=== PATIENT | female | born 1985 | race Caucasian/White ===

== ENCOUNTER 2019-02-18 03:29 | Inpatient (IN) | payer MEDICAID ==
[2019-02-18] MEDS ORDERED: Ondansetron 4 MG/2 ML SDV IVPUSH PRN ×2 (07:57→09:20)
[2019-02-18] MEDS ORDERED: Nalbuphine 20 MG/ML 1 ML Syringe IVPUSH PRN (07:57)
[2019-02-18] MEDS ORDERED: Sodium Chloride 0.9% 10 ML Syringe FLUSH PRN (07:57)
[2019-02-18] MEDS ORDERED: Oxytocin/Lactated Ringers 10 UNIT/1,000 ML BAG IV SCH (08:00)
[2019-02-18] MEDS: Oxytocin/Lactated Ringers 10 UNIT/1,000 ML BAG IV SCH ×2 (08:30→18:50)
[2019-02-18] MEDS: Lactated Ringers 1,000 ML IV SCH ×3 (08:58→19:48)
[2019-02-18] MEDS ORDERED: fentaNYL 100 MCG/2 ML SDV EPIDUR PRN (09:20)
[2019-02-18] MEDS ORDERED: ePHEDrine 50 MG/ML SDV IVPUSH PRN (09:20)
[2019-02-18] MEDS ORDERED: fentaNYL/Bupivacaine-NS 2 MCG/ML-0.125%/PF 100 ML Bag EPIDUR PRN (09:20)
[2019-02-18] MEDS ORDERED: diphenhydrAMINE 50 MG/ML SDV IVPUSH PRN (09:20)
--- NOTE | 2019-02-18 19:31 | PCM.PREANE ---
Preanesthetic Assessment - Anesthesia/Transfusion/Family Hx Anesthesia History: Prior Anesthesia Without Reaction Family History of Anesthesia Reaction: No Transfusion History: No Prior Transfusion(s) - Review of Systems General: Fatigue Pulmonary: No Symptoms Cardiovascular: Dyspnea on Exertion Gastrointestinal: Abdominal Pain (labor pain) Neurological: No Symptoms Other: Reports: None - Physical Assessment Pulse: 99 O2 Sat by Pulse Oximetry: 98 Respiratory Rate: 16 Blood Pressure: 132/81 Temperature: 36.7 C Vital Signs: Last Vital Signs Temp 36.7 C 02/18/19 08:00 Pulse 99 02/18/19 08:00 Resp 16 02/18/19 08:00 BP 132/81 02/18/19 08:00 Pulse Ox Height: 1.65 m Weight: 89.993 kg ASA Class: 2 Mental Status: Alert & Oriented x3 Airway Class: Mallampati = 1 Dentition: Reports: Normal Dentition Thyro-Mental Finger Breadths: 3 Mouth Opening Finger Breadths: 3 ROM/Head Extension: Full Lungs: Clear to Auscultation, Normal Respiratory Effort Cardiovascular: Regular Rate, Regular Rhythm - Lab Values: Laboratory Last Values WBC 9.78 K/mm3 (3.98-10.04) 02/18/19 08:11 RBC 3.98 M/mm3 (3.98-5.22) 02/18/19 08:11 Hgb 10.9 gm/L (11.2-15.7) L 02/18/19 08:11 Hct 32.9 % (34.1-44.9) L 02/18/19 08:11 MCV 82.7 fl (79.4-94.8) 02/18/19 08:11 MCH 27.4 pg (25.6-32.2) 02/18/19 08:11 MCHC 33.1 g/dl (32.2-35.5) 02/18/19 08:11 RDW Std Deviation 42.6 fL (36.4-46.3) 02/18/19 08:11 Plt Count 186 K/mm3 (182-369) 02/18/19 08:11 MPV 11.1 fl (9.4-12.3) 02/18/19 08:11 Neut % (Auto) 70.4 % (34.0-71.1) 02/18/19 08:11 Lymph % (Auto) 18.0 % (19.3-51.7) L 02/18/19 08:11 [place] % (Auto) 10.3 % (4.7-12.5) 02/18/19 08:11 Eos % (Auto) 0.5 (0.7-5.8) L 02/18/19 08:11 Baso % (Auto) 0.2 % (0.1-1.2) 02/18/19 08:11 Neut # (Auto) 6.88 K/mm3 (1.56-6.13) H 02/18/19 08:11 Lymph # (Auto) 1.76 K/mm3 (1.18-3.74) 02/18/19 08:11 [place] # (Auto) 1.01 K/mm3 (0.24-0.36) H 02/18/19 08:11 Eos # (Auto) 0.05 K/mm3 (0.04-0.36) 02/18/19 08:11 Baso # (Auto) 0.02 K/mm3 (0.01-0.08) 02/18/19 08:11 - Allergies Allergies/Adverse Reactions: Allergies Allergy/AdvReac Type Severity Reaction Status Date / Time Penicillins Allergy Hives Verified 02/18/19 07:13 - Anesthesia Plan Pre-Op Medication Ordered: None - Acknowledgements Anesthesia Type Planned: Epidural Pt an Appropriate Candidate for the Planned Anesthesia: Yes Alternatives and Risks of Anesthesia Discussed w Pt/Guardian: Yes Pt/Guardian Understands and Agrees with Anesthesia Plan: Yes PreAnesthesia Questionnaire - Past Health History Medical/Surgical History: Denies Medical/Surgical History Gastrointestinal History: Reports: GERD - Past Surgical History HEENT Surgical History: Reports: Oral Surgery Other HEENT Surgeries/Procedures: wisdom teeth over 10 years ago as reported by patient - SUBSTANCE USE Smoking Status *Q: Never Smoker Tobacco Use Within Last Twelve Months: No Second Hand Smoke Exposure: No Recreational Drug Use History: No - HOME MEDS Home Medications: Home Meds PNV95/Ferrous Fumarate/FA [ Tablet] 1 each PO 02/18/19 [History] Zolpidem Tartrate [Ambien] 5 mg PO 02/18/19 [History] - CURRENT (IN HOUSE) MEDS Current Meds: Current Medications Diphenhydramine HCl (Benadryl) 25 mg IVPUSH Q6H PRN PRN Reason: Pruritis Ephedrine Sulfate (Ephedrine Sulfate) 5 mg IVPUSH ASDIRECTED PRN PRN Reason: Hypotension Fentanyl (Sublimaze) 100 mcg EPIDUR ONETIME PRN PRN Reason: Pain Last Admin: 02/18/19 19:16 Dose: 100 mcg Fentanyl/Bupivacaine HCl (Daftbfzh-Xoema-Gv 2 Mcg/Ml-0.125%) 100 ml EPIDUR ASDIRECTED PRN PRN Reason: Pain (severe 7-10) Last Admin: 02/18/19 19:17 Dose: 100 ml Lactated Ringer's (Ringers, Lactated) 1,000 mls @ 100 mls/hr IV ASDIRECTED TIMMY Last Admin: 02/18/19 18:01 Dose: 100 mls/hr Oxytocin/Lactated Ringer's (Pitocin In Lr 10 Units/1,000 Ml) 10 unit in 1,000 mls @ 500 mls/hr IV .CONTINUOUS TIMMY Oxytocin/Lactated Ringer's (Pitocin In Lr 10 Units/1,000 Ml) 10 unit in 1,000 mls @ 12 mls/hr IV TITRATE TIMMY; Protocol Last Admin: 02/18/19 18:50 Dose: 23 munits/min, 138 mls/hr Nalbuphine HCl (Nubain) 10 mg IVPUSH Q2H PRN PRN Reason: pain Last Admin: 02/18/19 18:17 Dose: 10 mg Ondansetron HCl (Zofran) 4 mg IVPUSH Q4H PRN PRN Reason: Nausea/Vomiting Ondansetron HCl (Zofran) 4 mg IVPUSH ONETIME PRN PRN Reason: Nausea/Vomiting Sodium Chloride (Saline Flush) 10 ml FLUSH ASDIRECTED PRN PRN Reason: Keep Vein Open
[2019-02-18] MEDS ORDERED: Bupivacaine 0.25% 10 ML SDV ONE (22:00)
--- NOTE | 2019-02-19 04:00 | PCM.LDHP ---
L&D History of Present Illness - General Date of Service: 02/18/19 Admit Problem/Dx: Patient Status Order with Admit Dx/Problem 02/18/19 08:00 Patient Status [ADT] Routine Admission Diagnosis/Problem Admission Diagnosis/Problem - History of Present Illness Introduction:: 33 year old at 37w5d here for induction of labor secondary to cholestasis of . Pain Score: 10 - Related Data Allergies/Adverse Reactions: Allergies Allergy/AdvReac Type Severity Reaction Status Date / Time Penicillins Allergy Hives Verified 02/18/19 07:13 Home Medications: Home Meds PNV95/Ferrous Fumarate/FA [ Tablet] 1 each PO 02/18/19 [History] Zolpidem Tartrate [Ambien] 5 mg PO 02/18/19 [History] Past Medical History - Past Health History Medical/Surgical History: Denies Medical/Surgical History Gastrointestinal History: Reports: GERD - Past Surgical History HEENT Surgical History: Reports: Oral Surgery Other HEENT Surgeries/Procedures: wisdom teeth over 10 years ago as reported by patient Social & Family History - Family History Family Medical History: Noncontributory - Tobacco Use Smoking Status *Q: Never Smoker Second Hand Smoke Exposure: No - Caffeine Use Caffeine Use: Reports: None - Recreational Drug Use Recreational Drug Use: No H&P Review of Systems - Review of Systems: Review Of Systems: See Below General: Reports: No Symptoms HEENT: Reports: No Symptoms Pulmonary: Reports: No Symptoms Cardiovascular: Reports: No Symptoms Gastrointestinal: Reports: No Symptoms Genitourinary: Reports: No Symptoms Musculoskeletal: Reports: No Symptoms Skin: Reports: No Symptoms Psychiatric: Reports: No Symptoms Neurological: Reports: No Symptoms Hematologic/Lymphatic: Reports: No Symptoms Immunologic: Reports: No Symptoms L&D Exam - Exam Exam: See Below - Vital Signs Vital Signs: Last Vital Signs Temp 36.7 C 02/18/19 19:31 Pulse 99 02/18/19 19:31 Resp 16 02/18/19 19:31 BP 132/81 02/18/19 19:31 Pulse Ox 98 02/18/19 19:31 Weight: 89.993 kg - OB Specific Fundal Height In cm: 38 Contraction Intensity: Moderate Movement: Active Heart Tones per Min: 145 Presentation: Vertex Estimated Weight: 3000 - Shaw Score Shaw Score Cervix Position: Midposition Shaw Score Consistency: Soft Shaw Score Effacement: 51-70% Shaw Score Dilation: 3-4 cm Shaw Score Infant's Station: -2 Shaw Score Total: 8 - Exam General: Alert, Oriented HEENT: PERRLA, Conjunctiva Clear, EACs Clear, EOMI, Hearing Intact, Mucosa Moist & [place], Nares Patent, Normal Nasal Septum, Posterior Pharynx Clear, TMs Clear Neck: Supple, Trachea Midline Lungs: Clear to Auscultation, Normal Respiratory Effort Cardiovascular: Regular Rate, Regular Rhythm GI/Abdominal Exam: Normal Bowel Sounds, Soft, Non-Tender, No Organomegaly, No Distention, No Abnormal Bruit, No Mass, Pelvis Stable Rectal Exam: Normal Exam, Hemorrhoids Genitourinary: Normal external exam, Normal bimanual exam, Normal speculum exam Back Exam: Normal Inspection, Full Range of Motion Extremities: Normal Inspection, Normal Range of Motion, Non-Tender, No Pedal Edema, Normal Capillary Refill Skin: Warm, Dry, Intact Neurological: Cranial Nerves Intact, Reflexes Equal Bilateral Psychiatric: Alert, Normal Affect, Normal Mood - Patient Data Lab Results Last 24 hrs: Laboratory Results - last 24 hr 02/18/19 Range/Units 08:11 WBC 9.78 (3.98-10.04) K/mm3 RBC 3.98 (3.98-5.22) M/mm3 Hgb 10.9 L (11.2-15.7) gm/L Hct 32.9 L (34.1-44.9) % MCV 82.7 (79.4-94.8) fl MCH 27.4 (25.6-32.2) pg MCHC 33.1 (32.2-35.5) g/dl RDW Std Deviation 42.6 (36.4-46.3) fL Plt Count 186 (182-369) K/mm3 MPV 11.1 (9.4-12.3) fl Neut % (Auto) 70.4 (34.0-71.1) % Lymph % (Auto) 18.0 L (19.3-51.7) % [place] % (Auto) 10.3 (4.7-12.5) % Eos % (Auto) 0.5 L (0.7-5.8) Baso % (Auto) 0.2 (0.1-1.2) % Neut # (Auto) 6.88 H (1.56-6.13) K/mm3 Lymph # (Auto) 1.76 (1.18-3.74) K/mm3 [place] # (Auto) 1.01 H (0.24-0.36) K/mm3 Eos # (Auto) 0.05 (0.04-0.36) K/mm3 Baso # (Auto) 0.02 (0.01-0.08) K/mm3 Result Diagrams: 02/18/19 08:11 Problem List Initiated/Reviewed/Updated: Yes Orders Last 24hrs: Active Orders 24 hr Category Date Time Status Patient Status [ADT] Routine ADT 02/18/19 08:00 Active Activity as Tolerated [RC] PFP Care 02/18/19 08:00 Active Communication Order [RC] ASDIRECTED Care 02/18/19 08:00 Active Notify Provider [RC] ASDIRECTED Care 02/18/19 09:20 Active Notify Provider [RC] PFP Care 02/18/19 08:00 Active Notify Provider [RC] PRN Care 02/18/19 08:00 Active Peripheral IV Care [RC] . DIRECTED Care 02/18/19 08:00 Active Vital Signs [RC] PER UNIT ROUTINE Care 02/18/19 08:00 Active Regular Diet [DIET] Diet 02/18/19 Breakfast Active RAPID PLASMA REAGIN,RPR [CHEM] Routine Lab 02/18/19 08:11 Received Lactated Ringers [Ringers, Lactated] 1,000 ml Med 02/18/19 08:00 Active IV ASDIRECTED Nalbuphine [Nubain] Med 02/18/19 07:57 Active 10 mg IVPUSH Q2H PRN Ondansetron [Zofran] Med 02/18/19 09:20 Active 4 mg IVPUSH ONETIME PRN Ondansetron [Zofran] Med 02/18/19 07:57 Active 4 mg IVPUSH Q4H PRN Oxytocin [Pitocin] 20 unit Med 02/19/19 01:00 Active Lactated Ringers [Ringers, Lactated] 1,000 ml IV TITRATE Oxytocin/Lactated Ringers [Pitocin in LR 10 Units/1,000 Med 02/18/19 08:00 Active ML] 10 unit in 1,000 ml IV .CONTINUOUS Oxytocin/Lactated Ringers [Pitocin in LR 10 Units/1,000 Med 02/18/19 08:15 Active ML] 10 unit in 1,000 ml IV TITRATE Sodium Chloride 0.9% [Saline Flush] Med 02/18/19 07:57 Active 10 ml FLUSH ASDIRECTED PRN diphenhydrAMINE [Benadryl] Med 02/18/19 09:20 Active 25 mg IVPUSH Q6H PRN ePHEDrine [ePHEDrine sulfate] Med 02/18/19 09:20 Active 5 mg IVPUSH ASDIRECTED PRN fentaNYL [Sublimaze] Med 02/18/19 09:20 Active 100 mcg EPIDUR ONETIME PRN fentaNYL/Bupivacaine/NS/PF [kquavDNJ-Hirfi-GG 2 MCG/ML- Med 02/18/19 09:20 Active 0.125%] 100 ml EPIDUR ASDIRECTED PRN Electronic Heart Tones Ext w TOCO [WOMSER] Oth 02/18/19 08:00 Ordered Routine Electronic Heart Tones Internal [WOMSER] Per Unit Oth 02/18/19 08:00 Ordered Routine Peripheral IV Insertion Adult [OM.PC] Routine Oth 02/18/19 08:00 Ordered Resuscitation Status Routine Resus Stat 02/18/19 07:57 Ordered Medication Orders Diphenhydramine HCl (Benadryl) 25 mg IVPUSH Q6H PRN PRN Reason: Pruritis Ephedrine Sulfate (Ephedrine Sulfate) 5 mg IVPUSH ASDIRECTED PRN PRN Reason: Hypotension Fentanyl (Sublimaze) 100 mcg EPIDUR ONETIME PRN PRN Reason: Pain Last Admin: 02/18/19 19:16 Dose: 100 mcg Fentanyl/Bupivacaine HCl (Fycoljen-Vbrlh-Wh 2 Mcg/Ml-0.125%) 100 ml EPIDUR ASDIRECTED PRN PRN Reason: Pain (severe 7-10) Last Admin: 02/18/19 19:17 Dose: 100 ml Lactated Ringer's (Ringers, Lactated) 1,000 mls @ 100 mls/hr IV ASDIRECTED TIMMY Last Admin: 02/18/19 19:48 Dose: 100 mls/hr Infusion: 02/18/19 19:48 Dose: 100 mls/hr Admin: 02/18/19 18:01 Dose: 100 mls/hr Infusion: 02/18/19 18:01 Dose: 100 mls/hr Admin: 02/18/19 08:58 Dose: 100 mls/hr Oxytocin/Lactated Ringer's (Pitocin In Lr 10 Units/1,000 Ml) 10 unit in 1,000 mls @ 500 mls/hr IV .CONTINUOUS TIMMY Oxytocin/Lactated Ringer's (Pitocin In Lr 10 Units/1,000 Ml) 10 unit in 1,000 mls @ 12 mls/hr IV TITRATE TIMMY; Protocol Last Titration: 02/18/19 22:45 Dose: 30 munits/min, 180 mls/hr Titration: 02/18/19 21:42 Dose: 29 munits/min, 174 mls/hr Titration: 02/18/19 21:15 Dose: 27 munits/min, 162 mls/hr Titration: 02/18/19 20:42 Dose: 25 munits/min, 150 mls/hr Admin: 02/18/19 18:50 Dose: 23 munits/min, 138 mls/hr Titration: 02/18/19 18:50 Dose: 23 munits/min, 138 mls/hr Titration: 02/18/19 18:25 Dose: 23 munits/min, 138 mls/hr Titration: 02/18/19 16:40 Dose: 25 munits/min, 150 mls/hr Titration: 02/18/19 16:03 Dose: 24 munits/min, 144 mls/hr Titration: 02/18/19 15:10 Dose: 22 munits/min, 132 mls/hr Titration: 02/18/19 14:40 Dose: 20 munits/min, 120 mls/hr Titration: 02/18/19 14:00 Dose: 18 munits/min, 108 mls/hr Titration: 02/18/19 13:05 Dose: 16 munits/min, 96 mls/hr Titration: 02/18/19 12:25 Dose: 14 munits/min, 84 mls/hr Titration: 02/18/19 11:30 Dose: 12 munits/min, 72 mls/hr Titration: 02/18/19 11:01 Dose: 10 munits/min, 60 mls/hr Titration: 02/18/19 10:30 Dose: 8 munits/min, 48 mls/hr Titration: 02/18/19 10:00 Dose: 6 munits/min, 36 mls/hr Titration: 02/18/19 09:30 Dose: 4 munits/min, 24 mls/hr Admin: 02/18/19 08:30 Dose: 2 munits/min, 12 mls/hr Oxytocin 20 unit/ Lactated (Ringer's) 1,002 mls @ 90.18 mls/hr IV TITRATE TIMMY; Protocol Last Admin: 02/19/19 01:05 Dose: 30 munits/min, 90.18 mls/hr Nalbuphine HCl (Nubain) 10 mg IVPUSH Q2H PRN PRN Reason: pain Last Admin: 02/18/19 18:17 Dose: 10 mg Ondansetron HCl (Zofran) 4 mg IVPUSH Q4H PRN PRN Reason: Nausea/Vomiting Ondansetron HCl (Zofran) 4 mg IVPUSH ONETIME PRN PRN Reason: Nausea/Vomiting Sodium Chloride (Saline Flush) 10 ml FLUSH ASDIRECTED PRN PRN Reason: Keep Vein Open Assessment/Plan Comment:: Induction secondary to cholestasis. Pitocin, AROM when possible. Anticipate
--- NOTE | 2019-02-19 04:01 | PCM.PNLD ---
Labor Progress Note - VS & Meds Vital Signs: Last Vital Signs Temp 36.7 C 02/18/19 19:31 Pulse 99 02/18/19 19:31 Resp 16 02/18/19 19:31 BP 132/81 02/18/19 19:31 Pulse Ox 98 02/18/19 19:31 Active Medications: Current Medications Diphenhydramine HCl (Benadryl) 25 mg IVPUSH Q6H PRN PRN Reason: Pruritis Ephedrine Sulfate (Ephedrine Sulfate) 5 mg IVPUSH ASDIRECTED PRN PRN Reason: Hypotension Fentanyl (Sublimaze) 100 mcg EPIDUR ONETIME PRN PRN Reason: Pain Last Admin: 02/18/19 19:16 Dose: 100 mcg Fentanyl/Bupivacaine HCl (Mtqzwlwj-Mqyrh-Vn 2 Mcg/Ml-0.125%) 100 ml EPIDUR ASDIRECTED PRN PRN Reason: Pain (severe 7-10) Last Admin: 02/18/19 19:17 Dose: 100 ml Lactated Ringer's (Ringers, Lactated) 1,000 mls @ 100 mls/hr IV ASDIRECTED TIMMY Last Admin: 02/18/19 19:48 Dose: 100 mls/hr Oxytocin/Lactated Ringer's (Pitocin In Lr 10 Units/1,000 Ml) 10 unit in 1,000 mls @ 500 mls/hr IV .CONTINUOUS TIMMY Oxytocin/Lactated Ringer's (Pitocin In Lr 10 Units/1,000 Ml) 10 unit in 1,000 mls @ 12 mls/hr IV TITRATE TIMMY; Protocol Last Titration: 02/18/19 22:45 Dose: 30 munits/min, 180 mls/hr Oxytocin 20 unit/ Lactated (Ringer's) 1,002 mls @ 90.18 mls/hr IV TITRATE TIMMY; Protocol Last Admin: 02/19/19 01:05 Dose: 30 munits/min, 90.18 mls/hr Nalbuphine HCl (Nubain) 10 mg IVPUSH Q2H PRN PRN Reason: pain Last Admin: 02/18/19 18:17 Dose: 10 mg Ondansetron HCl (Zofran) 4 mg IVPUSH Q4H PRN PRN Reason: Nausea/Vomiting Ondansetron HCl (Zofran) 4 mg IVPUSH ONETIME PRN PRN Reason: Nausea/Vomiting Sodium Chloride (Saline Flush) 10 ml FLUSH ASDIRECTED PRN PRN Reason: Keep Vein Open - Uterine Contractions Contraction Intensity: Moderate - Monitoring Heart Rate (FHR) Baseline: 145 Heart Rate (FHR) Variability: Moderate (6-25 bmp) Accelerations: Present, 15x15 Decelerations: None Strip Review: Category I - Vaginal Exam Dilation (cm): 3 Effacement (Percent): 80 Cervical Position: Midposition - Labor Progress (Free Text) Labor Progress: Doing well AROM clear fluid
[2019-02-19] MEDS ORDERED: Acetaminophen 325 MG Tab PO PRN (04:49)
[2019-02-19] MEDS ORDERED: Benzocaine/Menthol 20%-0.5% Spray 56 GM Canister TOP PRN (04:50)
[2019-02-19] MEDS ORDERED: Witch Hazel Medicated Pads 40/Jar TOP PRN (04:50)
[2019-02-19] MEDS: Ibuprofen 600 MG Tab PO PRN ×3 (05:27→21:23)
--- NOTE | 2019-02-19 09:56 | PCM48HPAN ---
Post Anesthesia Note - EVALUATION WITHIN 48HRS OF ANESTHETIC Vital Signs in Normal Range: Yes Patient Participated in Evaluation: Yes Respiratory Function Stable: Yes Airway Patent: Yes Cardiovascular Function Stable: Yes Hydration Status Stable: Yes Pain Control Satisfactory: Yes Nausea and Vomiting Control Satisfactory: Yes Mental Status Recovered: Yes
[2019-02-19] MEDS ORDERED: Misoprostol 200 MCG Tab PO ONE (15:54)
--- NOTE | 2019-02-19 16:48 | PCM.SN ---
- Free Text/Narrative Note: Stage I - Patient presented for induction for cholestasis. Progressed to complete with reassuring heart tones. Epidural for anesthesia Stage II - of viable male, 6#7 oz, 8/8 APGARS at 0329. Head delivered in controlled manner over intact perineum. Body and shoulders followed without difficulty. Positive cry. To maternal abdomen. Cord clamped and cut. Stage III - of intact placenta. 3vc. EBL 150. 2nd degree repaired with 3-0 vicryl.
[2019-02-19] MEDS ORDERED: Acetaminophen/oxyCODONE 325-5 MG Tab PO ONE (21:52)
[2019-02-19] MEDS ORDERED: Methylergonovine 0.2 MG/1 ML Amp IM PRN (22:40)
[2019-02-20] MEDS: Acetaminophen/oxyCODONE 325-5 MG Tab PO PRN ×2 (01:58→08:46)
[2019-02-20] MEDS: Ibuprofen 600 MG Tab PO PRN (05:10)
--- NOTE | 2019-02-20 08:33 | PCM.DCSUM1 ---
Discharge Summary - Hospital Course Free Text/Narrative:: Stage I - Patient presented for induction for cholestasis. Progressed to complete with reassuring heart tones. Epidural for anesthesia Stage II - of viable male, 6#7 oz, 8/8 APGARS at 0329. Head delivered in controlled manner over intact perineum. Body and shoulders followed without difficulty. Positive cry. To maternal abdomen. Cord clamped and cut. Stage III - of intact placenta. 3vc. EBL 150. 2nd degree repaired with 3-0 vicryl. HPI Initial Comments: Stage I - Patient presented for induction for cholestasis. Progressed to complete with reassuring heart tones. Epidural for anesthesia Stage II - of viable male, 6#7 oz, 8/8 APGARS at 0329. Head delivered in controlled manner over intact perineum. Body and shoulders followed without difficulty. Positive cry. To maternal abdomen. Cord clamped and cut. Stage III - of intact placenta. 3vc. EBL 150. 2nd degree repaired with 3-0 vicryl. Brief History: Stage I - Patient presented for induction for cholestasis. Progressed to complete with reassuring heart tones. Epidural for anesthesia. Stage II - of viable male, 6#7 oz, 8/8 APGARS at 0329. Head delivered in controlled manner over intact perineum. Body and shoulders followed without difficulty. Positive cry. To maternal abdomen. Cord clamped and cut. Stage III - of intact placenta. 3vc. EBL 150. 2nd degree repaired with 3-0 vicryl. Diagnosis: Stroke: No - Discharge Data Discharge Date: 02/20/19 Discharge Disposition: Home, Self-Care 01 Condition: Good - Discharge Diagnosis/Problem(s) (1) Second degree laceration of perineum, delivered, current hospitalization SNOMED Code(s): 041186419, 976374464 ICD Code: O70.1 - SECOND DEGREE PERINEAL LACERATION DURING DELIVERY Status : Acute Current Visit: Yes (2) Cholelithiasis complicating in third trimester, antepartum SNOMED Code(s): 577628665, 460916325, 323752799 ICD Code: O26.613 - LIVER AND BILIARY TRACT DISORD IN , THIRD TRIMESTER; K80.20 - CALCULUS OF GALLBLADDER W/O CHOLECYSTITIS W/O OBSTRUCTION Status: Acute Current Visit: Yes (3) Liver and biliary tract disorders in , third trimester SNOMED Code(s): 37075554 ICD Code: O26.613 - LIVER AND BILIARY TRACT DISORD IN , THIRD TRIMESTER Status: Acute Current Visit: Yes (4) 37 weeks gestation of SNOMED Code(s): 82684724 ICD Code: Z3A.37 - 37 WEEKS GESTATION OF Status: Acute Current Visit: Yes - Patient Summary/Data Complications: None Consults: None Hospital Course: Uneventful - Patient Instructions Diet: Usual Diet as Tolerated Driving: Do Not Drive (48 hours) Showering/Bathing: May Shower Notify Provider of: Fever, Increased Pain, Swelling and Redness, Drainage, Nausea and/or Vomiting - Discharge Plan *PRESCRIPTION DRUG MONITORING PROGRAM REVIEWED*: Not Applicable *COPY OF PRESCRIPTION DRUG MONITORING REPORT IN PATIENT MEGHA: Not Applicable Home Medications: Home Meds PNV95/Ferrous Fumarate/FA [ Tablet] 1 each PO 02/18/19 [History] Acetaminophen [Tylenol] 650 mg PO Q6H PRN tablet 02/20/19 [Rx] Benzocaine/Menthol [Dermoplast Pain Relief [place]] 0 gm TOP ASDIRECTED PRN canister 02/20/19 [Rx] Ibuprofen [Motrin] 600 mg PO Q6H PRN tablet 02/20/19 [Rx] Witch Aury [Tucks] 1 pad TOP ASDIRECTED PRN pad 02/20/19 [Rx] Referrals: Tessie Nelson MD [Primary Care Provider] - (Patient will call Friday for an appointment) - Discharge Summary/Plan Comment DC Time >30 min.: No - Patient Data Vitals - Most Recent: Last Vital Signs Temp 97.3 F 02/20/19 05:14 Pulse 67 02/20/19 05:14 Resp 14 02/20/19 05:14 BP 123/75 02/20/19 05:14 Pulse Ox 95 02/20/19 05:14 Weight - Most Recent: 198 lb 6.4 oz Lab Results - Last 24 hrs: Laboratory Results - last 24 hr 02/18/19 02/20/19 Range/Units 08:11 06:15 WBC 13.68 H (3.98-10.04) K/mm3 RBC 3.13 L (3.98-5.22) M/mm3 Hgb 8.7 L D (11.2-15.7) gm/L Hct 26.3 L (34.1-44.9) % MCV 84.0 (79.4-94.8) fl MCH 27.8 (25.6-32.2) pg MCHC 33.1 (32.2-35.5) g/dl RDW Std Deviation 43.7 (36.4-46.3) fL Plt Count 176 L (182-369) K/mm3 MPV 11.2 (9.4-12.3) fl Neut % (Auto) 64.5 (34.0-71.1) % Lymph % (Auto) 26.9 (19.3-51.7) % [place] % (Auto) 7.5 (4.7-12.5) % Eos % (Auto) 0.9 (0.7-5.8) Baso % (Auto) 0.2 (0.1-1.2) % Neut # (Auto) 8.83 H (1.56-6.13) K/mm3 Lymph # (Auto) 3.68 (1.18-3.74) K/mm3 [place] # (Auto) 1.02 H (0.24-0.36) K/mm3 Eos # (Auto) 0.12 (0.04-0.36) K/mm3 Baso # (Auto) 0.03 (0.01-0.08) K/mm3 RPR Non-reactive (NONREACTIVE) Med Orders - Current: Current Medications Acetaminophen (Tylenol) 650 mg PO Q4H PRN PRN Reason: Pain (mild 1-3) Last Admin: 02/19/19 21:25 Dose: 650 mg Benzocaine/Menthol (Dermoplast Pain Relief [place]) 0 gm TOP ASDIRECTED PRN PRN Reason: Perineal Comfort Measure Last Admin: 02/19/19 05:27 Dose: 1 canister Ibuprofen (Motrin) 600 mg PO Q6H PRN PRN Reason: Cramping Last Admin: 02/20/19 05:10 Dose: 600 mg Oxycodone/Acetaminophen (Percocet 325-5 Mg) 2 tab PO Q4H PRN PRN Reason: Pain (moderate 4-6) Last Admin: 02/20/19 01:58 Dose: 2 tab Witch Aury (Tucks) 1 pad TOP ASDIRECTED PRN PRN Reason: Perineal Comfort Measure Last Admin: 02/19/19 05:27 Dose: 1 jar Discontinued Medications Bupivacaine HCl (Sensorcaine-Mpf 0.25%) 10 ml .ROUTE .STK-MED ONE Stop: 02/18/19 22:01 Diphenhydramine HCl (Benadryl) 25 mg IVPUSH Q6H PRN PRN Reason: Pruritis Ephedrine Sulfate (Ephedrine Sulfate) 5 mg IVPUSH ASDIRECTED PRN PRN Reason: Hypotension Fentanyl (Sublimaze) 100 mcg EPIDUR ONETIME PRN PRN Reason: Pain Last Admin: 02/18/19 19:16 Dose: 100 mcg Fentanyl/Bupivacaine HCl (Geilgxxs-Bshit-Tz 2 Mcg/Ml-0.125%) 100 ml EPIDUR ASDIRECTED PRN PRN Reason: Pain (severe 7-10) Last Admin: 02/18/19 19:17 Dose: 100 ml Lactated Ringer's (Ringers, Lactated) 1,000 mls @ 100 mls/hr IV ASDIRECTED TIMMY Last Admin: 02/18/19 19:48 Dose: 100 mls/hr Oxytocin/Lactated Ringer's (Pitocin In Lr 10 Units/1,000 Ml) 10 unit in 1,000 mls @ 500 mls/hr IV .CONTINUOUS TIMMY Oxytocin/Lactated Ringer's (Pitocin In Lr 10 Units/1,000 Ml) 10 unit in 1,000 mls @ 12 mls/hr IV TITRATE TIMMY; Protocol Last Titration: 02/18/19 22:45 Dose: 30 munits/min, 180 mls/hr Oxytocin 20 unit/ Lactated (Ringer's) 1,002 mls @ 90.18 mls/hr IV TITRATE TIMMY; Protocol Last Admin: 02/19/19 01:05 Dose: 30 munits/min, 90.18 mls/hr Methylergonovine Maleate (Methergine) 0.2 mg IM Q6HR PRN PRN Reason: Bleeding Misoprostol (Cytotec) 600 mcg PO ONETIME ONE Stop: 02/19/19 15:55 Last Admin: 02/19/19 16:09 Dose: 600 mcg Nalbuphine HCl (Nubain) 10 mg IVPUSH Q2H PRN PRN Reason: pain Last Admin: 02/18/19 18:17 Dose: 10 mg Ondansetron HCl (Zofran) 4 mg IVPUSH Q4H PRN PRN Reason: Nausea/Vomiting Ondansetron HCl (Zofran) 4 mg IVPUSH ONETIME PRN PRN Reason: Nausea/Vomiting Oxycodone/Acetaminophen (Percocet 325-5 Mg) 1 tab PO ONETIME ONE Stop: 02/19/19 21:53 Last Admin: 02/19/19 22:09 Dose: 1 tab Sodium Chloride (Saline Flush) 10 ml FLUSH ASDIRECTED PRN PRN Reason: Keep Vein Open
== END 2019-02-20 12:04 | disposition home or self-care (01) | DRG 805 ==
LOC: JD.OB 03:29 → OBSVTOIN 02-19 03:29 → JD.OB 02-19 03:30
PROVIDERS: ADMIT Obstetrics & Gynecology; ATTEND Obstetrics & Gynecology
PROC: 3E0R3BZ Introduction of Anesthetic Agent into Spinal Canal, Percutaneous Approach (ICD-10-PCS; 2019-02-18)
PROC: 00HU33Z Insertion of Infusion Device into Spinal Canal, Percutaneous Approach (ICD-10-PCS; 2019-02-18)
PROC: 0KQM0ZZ Repair Perineum Muscle, Open Approach (ICD-10-PCS; principal; 2019-02-19)
PROC: 3E033VJ Introduction of Other Hormone into Peripheral Vein, Percutaneous Approach (ICD-10-PCS; principal; 2019-02-19)
PROC: 10E0XZZ Delivery of Products of Conception, External Approach (ICD-10-PCS; principal; 2019-02-19)
PROC: 10907ZC Drainage of Amniotic Fluid, Therapeutic from Products of Conception, Via Natural or Artificial Opening (ICD-10-PCS; principal; 2019-02-19)
DX: O26.62 Liver and biliary tract disorders in childbirth (principal); K83.1 Obstruction of bile duct; Z37.0 Single live birth; O70.1 Second degree perineal laceration during delivery; Z3A.37 37 weeks gestation of pregnancy; O99.62 Diseases of the digestive system complicating childbirth; K21.9 Gastro-esophageal reflux disease without esophagitis; Z88.0 Allergy status to penicillin
CPT/HCPCS: 01967; 36415; 51701; 51702; 59025; 59409; 85025; 86592; A9270-GY; J2300; J2590; J3010; J3490; J7120

== ENCOUNTER 2019-03-05 11:47 | Day surgery (SDC) | payer MEDICAID ==
[2019-03-05] MEDS ORDERED: Sodium Chloride 0.9% 10 ML Syringe FLUSH PRN (11:55)
[2019-03-05] MEDS: Lactated Ringers 1,000 ML IV SCH (12:10)
[2019-03-05] MEDS: Lidocaine 1%/Sod Bicarbonate in NS 8.4% 1 ML Syringe IDERM PRN (12:10)
--- NOTE | 2019-03-05 12:10 | PCM.PREANE ---
Preanesthetic Assessment - Anesthesia/Transfusion/Family Hx Anesthesia History: Prior Anesthesia Without Reaction Family History of Anesthesia Reaction: No Transfusion History: No Prior Transfusion(s) - Review of Systems General: Fatigue Pulmonary: No Symptoms Cardiovascular: No Symptoms Gastrointestinal: No Symptoms Neurological: No Symptoms Other: Reports: None - Physical Assessment NPO Status Date: 03/05/19 NPO Status Time: 10:00 Pulse: 71 O2 Sat by Pulse Oximetry: 99 Respiratory Rate: 16 Blood Pressure: 121/89 Temperature: 36.4 C Height: 1.65 m Weight: 80 kg ASA Class: 2 Mental Status: Alert & Oriented x3 Airway Class: Mallampati = 1 Dentition: Reports: Normal Dentition Thyro-Mental Finger Breadths: 3 Mouth Opening Finger Breadths: 3 ROM/Head Extension: Full Lungs: Clear to Auscultation, Normal Respiratory Effort Cardiovascular: Regular Rate, Regular Rhythm - Allergies Allergies/Adverse Reactions: Allergies Allergy/AdvReac Type Severity Reaction Status Date / Time Penicillins Allergy Hives Verified 02/18/19 07:13 - Blood Blood Available: Yes - Anesthesia Plan Pre-Op Medication Ordered: None - Acknowledgements Anesthesia Type Planned: General Anesthesia Pt an Appropriate Candidate for the Planned Anesthesia: Yes Alternatives and Risks of Anesthesia Discussed w Pt/Guardian: Yes Pt/Guardian Understands and Agrees with Anesthesia Plan: Yes PreAnesthesia Questionnaire - Past Health History Medical/Surgical History: Denies Medical/Surgical History Gastrointestinal History: Reports: GERD - Past Surgical History HEENT Surgical History: Reports: Oral Surgery Other HEENT Surgeries/Procedures: wisdom teeth over 10 years ago as reported by patient - HOME MEDS Home Medications: Home Meds PNV95/Ferrous Fumarate/FA [ Tablet] 1 each PO 02/18/19 [History] Acetaminophen [Tylenol] 650 mg PO Q6H PRN tablet 02/20/19 [Rx] Benzocaine/Menthol [Dermoplast Pain Relief [place]] 0 gm TOP ASDIRECTED PRN canister 02/20/19 [Rx] Ibuprofen [Motrin] 600 mg PO Q6H PRN tablet 02/20/19 [Rx] Witch Aury [Tucks] 1 pad TOP ASDIRECTED PRN pad 02/20/19 [Rx] - CURRENT (IN HOUSE) MEDS Current Meds: Current Medications Lactated Ringer's (Ringers, Lactated) 1,000 mls @ 125 mls/hr IV ASDIRECTED TIMMY Stop: 03/05/19 23:00 Lidocaine/Sodium Bicarbonate (Buffered Lidocaine 1% In Ns 8.4%) 0.25 ml IDERM ONETIME PRN PRN Reason: Prior to IV Start Stop: 03/05/19 23:00 Sodium Chloride (Saline Flush) 10 ml FLUSH ASDIRECTED PRN PRN Reason: Keep Vein Open Stop: 03/05/19 23:00
[2019-03-05] MEDS ORDERED: Propofol 200 MG/20 ML SDV ONE (12:17)
[2019-03-05] MEDS ORDERED: Ondansetron 4 MG/2 ML SDV ONE (12:17)
[2019-03-05] MEDS ORDERED: fentaNYL 250 MCG/5 ML SDV ONE (12:17)
[2019-03-05] MEDS ORDERED: Rocuronium 50 MG/5 ML Vial ONE (12:17)
[2019-03-05] MEDS ORDERED: Midazolam 1 MG/ML 2 ML SDV ONE (12:17)
[2019-03-05] MEDS ORDERED: Lidocaine 1% 4 ML ONE (12:17)
[2019-03-05] MEDS ORDERED: Ketorolac 30 MG/ML SDV ONE (12:24)
[2019-03-05] MEDS ORDERED: ceFAZolin 1 GM Vial ONE (13:07)
[2019-03-05] MEDS ORDERED: Neostigmine Methylsulfate 1 MG/ML 5 ML Syringe ONE (13:23)
--- NOTE | 2019-03-05 13:42 | PCM.OPNOTE ---
- General Post-Op/Procedure Note Date of Surgery/Procedure: 03/05/19 Operative Procedure(s): dilation and curettage Findings: enlarged uterus. Pre Op Diagnosis: retained products of conception Post-Op Diagnosis: Same Anesthesia Technique: General ET Tube Primary Surgeon: Tessie Nelson Anesthesia Provider: Nuno Marinelli Fluid Replacement, Intraop: 600 EBL in mLs: 75 Complications: None Condition: Good Free Text/Narrative:: Patient taken to operating room. Placed in lithomy position. Speculum placed. Anterior lip of cervix grasped with ring forceps. 10 mm suction curette passed and used to empty clot and placental fragments from uterus. Minimal bleeding. good samreen. Instruments removed. Taken out of lithotomy and awakened
[2019-03-05] MEDS ORDERED: fentaNYL 100 MCG/2 ML SDV IVPUSH PRN (13:45)
--- NOTE | 2019-03-05 13:46 | PCM.POSTAN ---
POST ANESTHESIA ASSESSMENT - MENTAL STATUS Mental Status: Alert, Oriented - VITAL SIGNS Pulse Rate: 82 SaO2: 97 Resp Rate: 11 Blood Pressure: 126/72 Temperature: 36.7 C - RESPIRATORY Respiratory Status: Respiratory Rate WNL, Airway Patent, O2 Saturation Stable - CARDIOVASCULAR CV Status: Pulse Rate WNL, Blood Pressure Stable - GASTROINTESTINAL GI Status: No Symptoms - PAIN Pain Score: 0 - POST OP HYDRATION Hydration Status: Adequate & Stable - OBSERVATIONS Free Text/Narrative:: no anesthesia complications noted
== END 2019-03-05 15:05 | disposition home or self-care (01) ==
LOC: JD.SDS 11:47
PROVIDERS: ATTEND Obstetrics & Gynecology
DX: O02.1 Missed abortion (principal); Z88.0 Allergy status to penicillin; Z79.899 Other long term (current) drug therapy
CPT/HCPCS: 36415; 59820; 85025; 86850; 86900; 86901; J0690; J1885; J2001; J2250; J2405; J2704; J2710; J3010; J7120; 01965